=== PATIENT | female | born 1945 | race Caucasian/White ===

== ENCOUNTER 2016-07-13 06:06 | Observation (INO) | payer OTHER ==
[2016-07-13 06:07] VITALS: BMI 23.6
[2016-07-13] MEDS ORDERED: Sodium Chloride 0.9% 500 ML IV ONE (07:28)
--- NOTE | 2016-07-13 07:29 | C.PDOC ---
History Of Present Illness 71-year-old female, PMHx includes Hypertension, Hypercholesterolemia and Osteoporosis, presents to the emergency department with complaints of intermittent chest pain that is associated with nausea and vertigo-like sensation, since yesterday. Secondary complaint is right shoulder pain; Patient reports that pain has been mild for several months, but became more severe yesterday. Pain is worse with movement and palpation. Denies back pain, shortness of breath, headaches, or any other associated symptoms. No other complaints at this time. Time Seen by Provider: 07/13/16 06:10 Chief Complaint (Nursing): Upper Extremity Problem/Injury History Per: Patient History/Exam Limitations: no limitations Onset/Duration Of Symptoms: Days Current Symptoms Are (Timing): Still Present Past Medical History Reviewed: Historical Data, Nursing Documentation, Vital Signs Vital Signs: Last Vital Signs Temp 98.3 F 07/13/16 06:21 Pulse 69 07/13/16 06:21 Resp 16 07/13/16 06:21 BP 169/83 H 07/13/16 06:21 Pulse Ox 97 07/13/16 08:39 - Medical History PMH: HTN, Hypercholesterolemia, Osteoporosis Denies: Chronic Kidney Disease Family History: States: Unknown Family Hx - Social History Hx Tobacco Use: No Hx Alcohol Use: No Hx Substance Use: No - Immunization History Hx Tetanus Toxoid Vaccination: No Hx Influenza Vaccination: No Hx Pneumococcal Vaccination: No Review Of Systems Except As Marked, All Systems Reviewed And Found Negative. Constitutional: Negative for: Fever, Chills Cardiovascular: Positive for: Chest Pain Respiratory: Negative for: Cough, Shortness of Breath Gastrointestinal: Negative for: Nausea, Vomiting Musculoskeletal: Positive for: Shoulder Pain (right) Neurological: Positive for: Dizziness. Negative for: Weakness, Numbness, Headache Physical Exam - Physical Exam Appears: Non-toxic, No Acute Distress Skin: Warm, Dry, No Rash Head: Atraumatic, Normacephalic Eye(s): bilateral: Normal Inspection, PERRL Nose: Normal Oral Mucosa: Moist Lips: Normal Appearing Neck: Normal ROM Cardiovascular: Rhythm Regular Respiratory: Normal Breath Sounds, No Accessory Muscle Use Extremity: Normal ROM, Tenderness, No Pedal Edema, Capillary Refill (<2 seconds) , No Deformity, No Swelling, Other (FROM RIGHT SHOULDER, NO SWELLING. (+)TTP.) Neurological/Psych: Oriented x3, Normal Speech ED Course And Treatment - Laboratory Results Result Diagrams: 07/13/16 07:34 07/13/16 07:34 Lab Interpretation: No Acute Changes ECG: Interpreted By Me ECG Rhythm: Sinus Rhythm, Nonspecific Changes (non specific T wave abnormality) ECG Interpretation: No Acute Changes Rate From EC O2 Sat by Pulse Oximetry: 97 Pulse Ox Interpretation: Normal - Radiology CXR: Interpreted by Me CXR Interpretation: Yes: No Acute Disease - Other Rad right shoulder X-Ray: Interpreted by Me Interpretation: no acute fx or dislocation Progress Note: Plan: EKG. BNP, CMP, Trop I. Chest X-Ray. Meclizine, Aspirin , IVF. XR: R Shoulder. Reassess and Disposition - Physician Consult Information Time Consulting Physician Contacted: 08:39 Physician Contacted: Suresh Nelson (accepted the pt) Disposition Counseled Patient/Family Regarding: Studies Performed, Diagnosis - Disposition Disposition: HOSPITALIZED Disposition Time: 08:37 Condition: STABLE - Clinical Impression Clinical Impression: Chest pain, Vertigo, Shoulder pain, right - Scribe Statement The provider has reviewed the documentation as recorded by the Jeff Roland All medical record entries made by the Brendanibsamaria were at my direction and personally dictated by me. I have reviewed the chart and agree that the record accurately reflects my personal performance of the history, physical exam, medical decision making, and the department course for this patient. I have also personally directed, reviewed, and agree with the discharge instructions and disposition. Decision To Admit - Pt Status Changed To: Hospital Disposition Of: Observation - . Bed Request Type: Telemetry Admitting Physician: Suresh Nelson Patient Diagnosis: Chest pain, Vertigo, Shoulder pain, right
[2016-07-13 07:37] LABS: BASO # 0.1 K/uL (0.0-0.2); BASO % 1.3 % (0.0-2.0); EOS # 0.1 K/uL (0.0-0.7); EOS % 1.4 % (0.0-4.0); HEMATOCRIT 40.2 % (34.0-47.0); MEAN CELL VOLUME 88.6 fL (81.0-99.0); MEAN CORPUSCULAR HEMOGLOBIN 29.2 pg (27.0-31.0); MEAN CORPUSCULAR HGB CONC 32.9 g/dL (33.0-37.0); MEAN PLATELET VOLUME 7.7 fL (7.2-11.7); MONO # 0.4 K/uL (0.0-0.8); MONO % 7.9 % (0.0-10.0); RED CELL DISTRIBUTION WIDTH 13.4 % (11.5-14.5); WHITE BLOOD COUNT 5.3 K/uL (4.8-10.8)
[2016-07-13] MEDS ORDERED: Sodium Chloride 0.9% 1,000 ML ONE (07:45)
[2016-07-13 07:46] LABS: CHLORIDE 101 mmol/L (98-107); SODIUM 140 mmol/L (132-148)
[2016-07-13 07:47] LABS: POTASSIUM 4.4 mmol/L (3.6-5.2)
[2016-07-13 07:49] LABS: ALB/GLOB RATIO 1.3 (1.0-2.1); ALKALINE PHOSPHATASE 94 U/L (38-126); ALT/SGPT 25 U/L (9-52); AST/SGOT 35 U/L (14-36); BILIRUBIN,TOTAL 0.7 mg/dL (0.2-1.3); BLOOD UREA NITROGEN 15 mg/dL (7-17); CARBON DIOXIDE 26 mmol/L (22-30); GFR AFRICAN-AMERICAN > 60; GLUCOSE,RANDOM 87 mg/dL (65-105); TOTAL PROTEIN 7.6 g/dL (6.3-8.3)
[2016-07-13 07:50] LABS: CALCIUM 8.5 mg/dl (8.6-10.4)
--- NOTE | 2016-07-13 10:05 | CP.PCM.HP ---
<Doris Gibson - Last Filed: 07/13/16 11:17> History of Present Illness - History of Present Illness History of Present Illness: CC: "chest pain and shoulder pain" HPI: Patient is a 71 year old female with PMHx of HTN, hyperlipidemia, osteoporosis and seasonal allergies presenting for left sided constant chest pain and right shoulde pain since yesterday. Patient denies trauma, fall, lifting anything heavy. Patient reports mild acid reflux. Patient reports associated SOB with left sided chest pain. Patient said it came on out of the blue while sitting. Patient was able to sleep but as soon as she woke up she felt it again. Patient says it hurts more when she pushes on it and moves around. Pain increases with deep inspiration. Patient says the pain and SOB have resolved now with the ASA she received in the ED. Patient reports intermittent cough x 2 days nonproductive of phlegm. Patient also reports dizziness since yesterday on and off. Patient says that is gone but she feels a little nauseous now. Patient did not fall or lose her balance. Patient's right shoulder pain also started yesterday. She does not remember doing anything to hurt her shoulder. She has not used ice. Pain resolved with advil at home but returned a few hours later. 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 This may have aggravated her shoulder. Patient also reports urinating every 30 minutes for the past 2 days. Patient denies pain with urination. Patient denies fever, vision change, palpitations, vomiting, diarrhea, constipation, weight change. PMD: Dr. Fam Allergies: seasonal, NKDA PMHx: as above PSHx: denies Social Hx: Denies ETOH, Tobacco, drugs. Lives alone. Works as nanny for 2 boys Family Hx: denies HI, CA, HTN and DM in family Medications: A medication for allergies; patient reports stopping her HTN and hyperlipidemia meds because she says it got better. Patient does not know names of what she used to be on. Present on Admission - Present on Admission Any Indicators Present on Admission: No Review of Systems - Constitutional Constitutional: Chills. absent: Fever, Weakness - EENT Eyes: absent: Change in Vision Ears: Dizziness Nose/Mouth/Throat: absent: Sore Throat - Cardiovascular Cardiovascular: Chest Pain, Chest Pain at Rest, Dyspnea, Pain Radiating to Arm/ Neck/Jaw (to opposite shoulder - right shoulder). absent: Diaphoresis, Leg Edema, Palpitations, Pedal Edema, Syncope - Respiratory Respiratory: Cough, Dyspnea. absent: Wheezing, Chest Congestion, Pain with Coughing - Gastrointestinal Gastrointestinal: Nausea. absent: Abdominal Pain, Constipation, Diarrhea, Vomiting - Genitourinary Genitourinary: Urinary Frequency. absent: Dysuria - Reproductive: Female Reproductive:Female: Post Menopausal - Musculoskeletal Musculoskeletal: absent: Back Pain, Numbness - Integumentary Integumentary: absent: Rash - Neurological Neurological: Dizziness. absent: Headaches, Syncope - Endocrine Endocrine: absent: Palpitations - Hematologic/Lymphatic Hematologic: absent: Easy Bleeding, Easy Bruising Past Patient History - Past Medical History & Family History Past Medical History?: Yes Past Family History: Reviewed and not pertinent - Past Social History Smoking Status: Never Smoked Occupation: nanny for 2 boys Alcohol: None Drugs: Denies Home Situation {Lives}: Alone - CARDIAC Hx Hypercholesterolemia: Yes Hx Hypertension: Yes - PULMONARY Hx Respiratory Disorders: No - NEUROLOGICAL Hx Neurological Disorder: No - HEENT Hx HEENT Problems: No - RENAL Hx Chronic Kidney Disease: No - ENDOCRINE/METABOLIC Hx Endocrine Disorders: No - HEMATOLOGICAL/ONCOLOGICAL Hx Blood Disorders: No - MUSCULOSKELETAL/RHEUMATOLOGICAL Hx Osteoporosis: Yes - GASTROINTESTINAL Hx Gastrointestinal Disorders: No - PSYCHIATRIC Hx Substance Use: No - SURGICAL HISTORY Hx Surgeries: No - ANESTHESIA Hx Anesthesia: No Meds Home Medications: Home Medication List Medication Instructions Recorded Confirmed Type Aspirin [Aspirin Chewable] 81 mg PO DAILY #30 07/14/16 Rx Ciprofloxacin HCl [Cipro] 500 mg PO BID #14 tablet 07/14/16 Rx Meclizine [Meclizine*] 25 mg PO TID PRN 30 Days 07/14/16 Rx Simvastatin 20 mg PO HS #30 tablet 07/14/16 Rx amLODIPine [Norvasc] 5 mg PO DAILY #30 tab 07/14/16 Rx Allergies/Adverse Reactions: Allergies Allergy/AdvReac Type Severity Reaction Status Date / Time No Known Allergies Allergy Verified 07/13/16 06:30 Physical Exam - Constitutional Appears: Non-toxic, No Acute Distress - Head Exam Head Exam: ATRAUMATIC, NORMAL INSPECTION - Eye Exam Eye Exam: EOMI - ENT Exam ENT Exam: Mucous Membranes Moist - Respiratory Exam Respiratory Exam: Chest Wall Tenderness, Clear to Auscultation Bilateral, NORMAL BREATHING PATTERN. absent: Rales, Rhonchi, Wheezes - Cardiovascular Exam Cardiovascular Exam: REGULAR RHYTHM, +S1, +S2. absent: Gallop, Rubs, Systolic Murmur - GI/Abdominal Exam GI & Abdominal Exam: Normal Bowel Sounds, Soft. absent: Distended, Tenderness - Extremities Exam Additional comments: right shoulder tenderness posterior and anterior cannot lift arm over head due to pain - Neurological Exam Neurological exam: Alert, Oriented x3 - Psychiatric Exam Psychiatric exam: Normal Affect, Normal Mood - Skin Skin Exam: Normal Color, Warm Results - Vital Signs Recent Vital Signs: Last Vital Signs Temp 98.3 F 07/13/16 06:21 Pulse 69 07/13/16 06:21 Resp 16 07/13/16 06:21 BP 169/83 H 07/13/16 06:21 Pulse Ox 97 07/13/16 09:51 - Labs Result Diagrams: 07/13/16 07:34 07/13/16 07:34 Labs: Laboratory Results - last 24 hr 07/13/16 07/13/16 07:34 07:34 WBC 5.3 RBC 4.54 Hgb 13.2 Hct 40.2 MCV 88.6 MCH 29.2 MCHC 32.9 L RDW 13.4 Plt Count 256 MPV 7.7 Neut % (Auto) 52.4 Lymph % (Auto) 37.0 Kendall % (Auto) 7.9 Eos % (Auto) 1.4 Baso % (Auto) 1.3 Neut # 2.8 Lymph # 2.0 Kendall # 0.4 Eos # 0.1 Baso # 0.1 Sodium 140 Potassium 4.4 Chloride 101 Carbon Dioxide 26 Anion Gap 17 BUN 15 Creatinine 0.5 L Est GFR ( Amer) > 60 Est GFR (Non-Af Amer) > 60 Random Glucose 87 Calcium 8.5 L Total Bilirubin 0.7 AST 35 ALT 25 Alkaline Phosphatase 94 Troponin I < 0.0120 NT-Pro-B Natriuret Pep 68.4 Total Protein 7.6 Albumin 4.2 Globulin 3.3 Albumin/Globulin Ratio 1.3 Assessment & Plan - Assessment and Plan (Free Text) Assessment: ACS DILIA neg x1 F/U ROMIs x2 with EKGs at 14:00 and 20:00 F/U ECHO ASA 81mg PO daily Crestor 10mg PO daily F/U HgbA1C, TSH, Lipid panel Shoulder pain Likely muscular R. Shoulder X ray: likely DJD - f/u official report Ibuprofen 400mg PO Q6 PRN Will consider MRI if pain persists Urinary frequency F/U UA and urine C&S Rocephin 1gm IVPB daily started 07/13/16 WBC normal, afebrile Monitor Dizziness Resolved with meclizine in ER Meclixine 25mg PO TID F/U ECHO F/U carotid US F/U RPR, Vit D, TSH, B12, Folate NS @60cc/hr History of HTN No home meds Uncontrolled on admission Started Norvasc 5mg PO daily Monitor BPs History of hyperlipidemia No home med Crestor 10mg PO HS F/U FLP Prophylaxis Protonix 40mg PO daily Hep 5000U SC Q8 SCDs <Suresh Nelson - Last Filed: 08/20/16 16:41> Results - Vital Signs Recent Vital Signs: Last Vital Signs Temp 97.6 F 07/14/16 15:30 Pulse 62 07/14/16 16:49 Resp 20 07/14/16 15:30 BP 147/91 H 07/14/16 15:30 Pulse Ox 97 07/14/16 15:30 - Labs Result Diagrams: 07/14/16 08:04 07/13/16 07:34 Attending/Attestation - Attestation I have personally seen and examined this patient.: Yes I have fully participated in the care of the patient.: Yes I have reviewed all pertinent clinical information: Yes Notes (Text): Patient Seen and examined with the resident. Agree with the resident's evaluation, assessment and plan. Chest pain need to consider ACS Shoulder pain Urinary frequency Dizziness Resolved with meclizine in ER
[2016-07-13] MEDS: Pantoprazole 40 mg EC Tab PO SCH (11:00)
[2016-07-13] MEDS: Sodium Chloride 0.9% 1,000 ML IV SCH (11:45)
--- NOTE | 2016-07-13 11:47 | RAD ---
PROCEDURE: Radiographs of the Right Shoulder HISTORY: Arm pain. No antecedent history of trauma provided. COMPARISON: AllNo prior. FINDINGS: BONES: No acute fracture. No evidence of subluxation or dislocation. JOINTS: Degenerative changes affecting the acromioclavicular joint, mild. Preservation of the glenohumeral relationship. SOFT TISSUES: Normal. OTHER FINDINGS: None. IMPRESSION: No acute findings related to/accounting for the clinical presentation. Concordant results with the preliminary interpretation rendered by the emergency department physician procedure.
--- NOTE | 2016-07-13 11:48 | RAD ---
PROCEDURE: CHEST RADIOGRAPH, 1 VIEW HISTORY: chest pain COMPARISON: 12/07/2015. FINDINGS: LUNGS: Clear. PLEURA: No pneumothorax or pleural fluid seen. CARDIOVASCULAR: Normal. OSSEOUS STRUCTURES: No significant abnormalities. VISUALIZED UPPER ABDOMEN: Normal. OTHER FINDINGS: None. IMPRESSION: No active disease. No acute/significant interval changes. Concordant results with the preliminary interpretation rendered by the emergency department physician procedure.
[2016-07-13 16:05] VITALS: RESP 20
[2016-07-14] MEDS: Sodium Chloride 0.9% 1,000 ML IV SCH (05:25)
[2016-07-14 08:14] LABS: BASO # 0.1 K/uL (0.0-0.2); BASO % 1.1 % (0.0-2.0); EOS # 0.1 K/uL (0.0-0.7); EOS % 2.2 % (0.0-4.0); HEMATOCRIT 39.4 % (34.0-47.0); LYMPH # 2.3 K/uL (1.0-4.3); LYMPH % 47.1 % (20.0-40.0); MEAN CELL VOLUME 89.3 fL (81.0-99.0); MEAN CORPUSCULAR HGB CONC 33.6 g/dL (33.0-37.0); MONO # 0.4 K/uL (0.0-0.8); MONO % 8.1 % (0.0-10.0); RED CELL DISTRIBUTION WIDTH 13.8 % (11.5-14.5)
[2016-07-14 08:21] LABS: RBC URINE 9 /hpf (0-3); URINE BACTERIA RARE (<OCC); URINE BILIRUBIN NEGATIVE (NEGATIVE); URINE BLOOD 1+ (NEGATIVE); URINE COLOR Yellow (YELLOW); URINE GLUCOSE (UA) NORMAL (Normal); URINE KETONE NEGATIVE (NEGATIVE); URINE LEUKOCYTE ESTERASE 3+ Leu/uL (Negative); URINE PROTEIN NEGATIVE (NEGATIVE); URINE UROBILINOGEN NORMAL mg/dL (0.2-1.0); WBC URINE 51 /hpf (0-5)
[2016-07-14 09:13] LABS: THYROID STIMULATING HORMONE 2.58 mIU/L (0.46-4.68)
[2016-07-14] MEDS ORDERED: Pneumococcal 23-Valent Vaccine IM ONE ×2 (10:00→13:45)
[2016-07-14] MEDS: Pantoprazole 40 mg EC Tab PO SCH (11:02)
--- NOTE | 2016-07-14 11:53 | CARD ---
APPROVED REPORT EXAM: Two-dimensional and M-mode echocardiogram with Doppler and color Doppler. Other Information Quality : GoodRhythm : INDICATION Dizziness and Vertigo Dyspnea Chest Pain RISK FACTORS Hypertension Hyperlipidemia M-Mode DIMENSIONS RVDd1.80 (2.1-3.2cm)Left Atrium (MM)3.44 (2.5-4.0cm) IVSd1.15 (0.7-1.1cm)Aortic Root2.88 (2.2-3.7cm) LVDd4.72 (4.0-5.6cm)Aortic Cusp Exc.1.80 (1.5-2.0cm) PWd1.10 (0.7-1.1cm)FS (%) 51 % LVDs2.29 (2.0-3.8cm)LVEF (%)83 (>50%) Mitral Valve MV E Pnwxgpne57.9cm/sMV A Hdsoyblk472.5cm/sE/A ratio0.7 TDI E/Lateral E'0.0E/Medial E'0.0 Tricuspid Valve TR Peak [id number]/sTR Peak Gr.[id number] LEFT VENTRICLE The left ventricle is normal size. There is normal left ventricular wall thickness. The left ventricular systolic function is normal. The left ventricular ejection fraction is within the normal range. There is normal LV segmental wall motion. Transmitral Doppler flow pattern is Grade I-abnormal relaxation pattern. Normal left atrial pressure. RIGHT VENTRICLE The right ventricle is normal size. The right ventricular systolic function is normal. ATRIA The left atrium size is normal. The right atrium size is normal. AORTIC VALVE The aortic valve is normal in structure. No aortic regurgitation is present. MITRAL VALVE The mitral valve is normal in structure. There is no mitral valve regurgitation noted. TRICUSPID VALVE The tricuspid valve is normal in structure. There is trace to mild tricuspid regurgitation. PULMONIC VALVE The pulmonary valve is normal in structure. There is trace pulmonic valvular regurgitation. GREAT VESSELS The aortic root is normal in size. The IVC is normal in size and collapses >50% with inspiration. PERICARDIAL EFFUSION There is no pericardial effusion. <Conclusion> The left ventricular systolic function is normal. The right ventricular systolic function is normal. No significant valvular abnormality noted. There is no pericardial effusion.
[2016-07-14 16:26] VITALS: BP 147/91; TEMP 97.6; O2SAT 97
[2016-07-14 16:56] VITALS: PULSE 62
--- NOTE | 2016-07-14 17:17 | CARD ---
APPROVED REPORT EKG Measurement Heart [id number] QT0T0 QTc0 <Conclusion> No QRS complexes found, no ECG analysis possible
--- NOTE | 2016-07-14 17:18 | CARD ---
APPROVED REPORT EKG Measurement Heart [id number] <Conclusion> Normal sinus rhythm Nonspecific T wave abnormality Abnormal ECG
--- NOTE | 2016-07-14 17:19 | CARD ---
APPROVED REPORT EKG Measurement Heart [id number] NM [id number] <Conclusion> Normal sinus rhythm Nonspecific T wave abnormality Abnormal ECG
--- NOTE | 2016-07-14 17:43 | CP.PCM.DIS ---
<Wilmer Lema - Last Filed: 07/14/16 17:54> Provider - Provider Date of Admission: 07/13/16 09:50 Attending physician: Suresh Nelson MD Consults: No consults. Time Spent in preparation of Discharge (in minutes): 45 Hospital Course - Lab Results Lab Results: Most Recent Lab Values WBC 5.0 K/uL (4.8-10.8) 07/14/16 08:04 RBC 4.41 Mil/uL (3.80-5.20) 07/14/16 08:04 Hgb 13.2 g/dL (11.0-16.0) 07/14/16 08:04 Hct 39.4 % (34.0-47.0) 07/14/16 08:04 MCV 89.3 fL (81.0-99.0) 07/14/16 08:04 MCH 30.0 pg (27.0-31.0) 07/14/16 08:04 MCHC 33.6 g/dL (33.0-37.0) 07/14/16 08:04 RDW 13.8 % (11.5-14.5) 07/14/16 08:04 Plt Count 262 K/uL (130-400) 07/14/16 08:04 MPV 8.0 fL (7.2-11.7) 07/14/16 08:04 Neut % (Auto) 41.5 % (50.0-75.0) L 07/14/16 08:04 Lymph % (Auto) 47.1 % (20.0-40.0) H 07/14/16 08:04 Becker % (Auto) 8.1 % (0.0-10.0) 07/14/16 08:04 Eos % (Auto) 2.2 % (0.0-4.0) 07/14/16 08:04 Baso % (Auto) 1.1 % (0.0-2.0) 07/14/16 08:04 Neut # 2.1 K/uL (1.8-7.0) 07/14/16 08:04 Lymph # 2.3 K/uL (1.0-4.3) 07/14/16 08:04 Becker # 0.4 K/uL (0.0-0.8) 07/14/16 08:04 Eos # 0.1 K/uL (0.0-0.7) 07/14/16 08:04 Baso # 0.1 K/uL (0.0-0.2) 07/14/16 08:04 APTT 47 SECONDS (21-34) H 07/14/16 08:04 Sodium 140 mmol/L (132-148) 07/13/16 07:34 Potassium 4.4 mmol/L (3.6-5.2) 07/13/16 07:34 Chloride 101 mmol/L (98-107) 07/13/16 07:34 Carbon Dioxide 26 mmol/L (22-30) 07/13/16 07:34 Anion Gap 17 (10-20) 07/13/16 07:34 BUN 15 mg/dL (7-17) 07/13/16 07:34 Creatinine 0.5 MG/DL (0.7-1.2) L 07/13/16 07:34 Est GFR ( Amer) > 60 07/13/16 07:34 Est GFR (Non-Af Amer) > 60 07/13/16 07:34 Random Glucose 87 mg/dL (65-105) 07/13/16 07:34 Hemoglobin A1c 5.9 % (4.2-6.5) 07/14/16 08:04 Calcium 8.5 mg/dl (8.6-10.4) L 07/13/16 07:34 Total Bilirubin 0.7 mg/dL (0.2-1.3) 07/13/16 07:34 AST 35 U/L (14-36) 07/13/16 07:34 ALT 25 U/L (9-52) 07/13/16 07:34 Alkaline Phosphatase 94 U/L (38-126) 07/13/16 07:34 Total Creatine Kinase 58 U/L (30-135) 07/13/16 20:14 CK-MB (Mass) 0.57 ng/mL (0.0-3.38) 07/13/16 20:14 Troponin I < 0.0120 ng/mL (0.00-0.120) 07/13/16 07:34 Troponin I, Quant < 0.0120 ng/mL (0.00-0.120) 07/13/16 20:14 NT-Pro-B Natriuret Pep 68.4 pg/mL (0-900) 07/13/16 07:34 Total Protein 7.6 g/dL (6.3-8.3) 07/13/16 07:34 Albumin 4.2 g/dL (3.5-5.0) 07/13/16 07:34 Globulin 3.3 gm/dL (2.2-3.9) 07/13/16 07:34 Albumin/Globulin Ratio 1.3 (1.0-2.1) 07/13/16 07:34 Triglycerides 340 mg/dL (0-149) H D 07/14/16 08:04 Cholesterol 249 mg/dL (0-199) H 07/14/16 08:04 LDL Cholesterol Direct 146 mg/dL (0-129) H 07/14/16 08:04 HDL Cholesterol 39 mg/dL (30-70) 07/14/16 08:04 Vitamin B12 588 pg/mL (239-931) 07/14/16 08:04 25-OH Vitamin D Total < 12.8 NG/ML (30.0-100.0) L 07/14/16 08:04 TSH 3rd Generation 2.58 mIU/L (0.46-4.68) 07/14/16 08:04 Urine Color Yellow (YELLOW) 07/14/16 08:06 Urine Clarity Hazy (Clear) 07/14/16 08:06 Urine pH 5.0 (5.0-8.0) 07/14/16 08:06 Ur Specific [place] 1.016 (1.003-1.030) 07/14/16 08:06 Urine Protein Negative mg/dL (NEGATIVE) 07/14/16 08:06 Urine Glucose (UA) Normal mg/dL (Normal) 07/14/16 08:06 Urine Ketones Negative mg/dL (NEGATIVE) 07/14/16 08:06 Urine Blood 1+ (NEGATIVE) H 07/14/16 08:06 Urine Nitrate Negative (NEGATIVE) 07/14/16 08:06 Urine Bilirubin Negative (NEGATIVE) 07/14/16 08:06 Urine Urobilinogen Normal mg/dL (0.2-1.0) 07/14/16 08:06 Ur Leukocyte Esterase 3+ Melony/uL (Negative) H 07/14/16 08:06 Urine WBC (Auto) 51 /hpf (0-5) H 07/14/16 08:06 Urine RBC (Auto) 9 /hpf (0-3) H 07/14/16 08:06 Ur Squamous Epith Cells 9 /hpf (0-5) H 07/14/16 08:06 Urine Bacteria Rare (<OCC) 07/14/16 08:06 RPR Nonreactive (NONREACTIVE) 07/14/16 08:04 - Hospital Course Hospital Course: Attending physician: Dr. Huerta Consults: None Condition on discharge: stable Discharge dx: 1. R/o ACS 2. Dizziness 3. UTI 4. HTN 5. HLD Procedures: none Hospital course: This is a 71 yo female with past medical hx HTN, HLD, osteoporosis presenting with chest pain radiating to right shoulder, constant, increased with inspiration. CXR was negative. Should x ray was negative. EKG showed NSR @ 81 bpm. UA showed blood in urine as well as LE and numerous WBCs. Carotid doppler reading is pending. Echo performed was normal. Troponins were negative x 3. On day of discharge, pain had completely resolved and pt was given rx for additional days of abx to treat uti. She will need outpatient stress test. HPI: see H/P Lab results: see lab section Discharge meds: 1. vitamin d 50,000 units 1 x weekly for 12 wks 2. cipro 500 mg bid for 7 days 3. asa 81 daily 4. norvasc 5 daily 5. antivert 25 tid prn 6. simvastatin 20 po hs Discharge instructions -Return if condition worsens. Take all discharge meds as prescribed. F/u In [facility]. Pt will need outpatient stress test. - Date & Time of H&P Date of H&P: 07/13/16 Time of H&P: 09:59 Discharge Exam - Head Exam Head Exam: ATRAUMATIC, NORMAL INSPECTION - Eye Exam Eye Exam: EOMI - ENT Exam ENT Exam: Mucous Membranes Moist - Neck Exam Neck exam: Full Rom, Normal Inspection - Respiratory Exam Respiratory Exam: NORMAL BREATHING PATTERN - Cardiovascular Exam Cardiovascular Exam: +S1, +S2 - GI/Abdominal Exam GI & Abdominal Exam: Normal Bowel Sounds, Unremarkable - Extremities Exam Extremities exam: full ROM, normal inspection - Back Exam Back exam: NORMAL INSPECTION - Neurological Exam Neurological exam: Alert, Oriented x3 - Psychiatric Exam Psychiatric exam: Normal Affect, Normal Mood - Skin Skin Exam: Dry, Intact, Normal Color, Warm Discharge Plan - Discharge Medications Prescriptions: amLODIPine [Norvasc] 5 mg PO DAILY #30 tab Aspirin [Aspirin Chewable] 81 mg PO DAILY #30 Ciprofloxacin HCl [Cipro] 500 mg PO BID #14 tablet Meclizine [Meclizine*] 25 mg PO TID PRN 30 Days PRN Reason: Dizziness Simvastatin 20 mg PO HS #30 tablet - Follow Up Plan Condition: STABLE Disposition: HOME/ ROUTINE Instructions: Ciprofloxacin (By mouth), Aspirin (By mouth), Meclizine (By mouth ), Amlodipine (By mouth), Simvastatin (By mouth), Chest Pain (DC), Heart Healthy Diet (DC), Hypertension (DC), Hyperlipidemia (DC) Additional Instructions: pt is medically stable for discharge. pt to follow up in [facility] ([phone]) within 1 week of discharge. Referrals: [facility] [Outside] <Raeann Huerta V - Last Filed: 07/14/16 23:59> Provider - Provider Date of Admission: 07/13/16 09:50 Attending physician: Suresh Nelson MD Hospital Course - Lab Results Lab Results: Most Recent Lab Values WBC 5.0 K/uL (4.8-10.8) 07/14/16 08:04 RBC 4.41 Mil/uL (3.80-5.20) 07/14/16 08:04 Hgb 13.2 g/dL (11.0-16.0) 07/14/16 08:04 Hct 39.4 % (34.0-47.0) 07/14/16 08:04 MCV 89.3 fL (81.0-99.0) 07/14/16 08:04 MCH 30.0 pg (27.0-31.0) 07/14/16 08:04 MCHC 33.6 g/dL (33.0-37.0) 07/14/16 08:04 RDW 13.8 % (11.5-14.5) 07/14/16 08:04 Plt Count 262 K/uL (130-400) 07/14/16 08:04 MPV 8.0 fL (7.2-11.7) 07/14/16 08:04 Neut % (Auto) 41.5 % (50.0-75.0) L 07/14/16 08:04 Lymph % (Auto) 47.1 % (20.0-40.0) H 07/14/16 08:04 Becker % (Auto) 8.1 % (0.0-10.0) 07/14/16 08:04 Eos % (Auto) 2.2 % (0.0-4.0) 07/14/16 08:04 Baso % (Auto) 1.1 % (0.0-2.0) 07/14/16 08:04 Neut # 2.1 K/uL (1.8-7.0) 07/14/16 08:04 Lymph # 2.3 K/uL (1.0-4.3) 07/14/16 08:04 Becker # 0.4 K/uL (0.0-0.8) 07/14/16 08:04 Eos # 0.1 K/uL (0.0-0.7) 07/14/16 08:04 Baso # 0.1 K/uL (0.0-0.2) 07/14/16 08:04 APTT 47 SECONDS (21-34) H 07/14/16 08:04 Sodium 140 mmol/L (132-148) 07/13/16 07:34 Potassium 4.4 mmol/L (3.6-5.2) 07/13/16 07:34 Chloride 101 mmol/L (98-107) 07/13/16 07:34 Carbon Dioxide 26 mmol/L (22-30) 07/13/16 07:34 Anion Gap 17 (10-20) 07/13/16 07:34 BUN 15 mg/dL (7-17) 07/13/16 07:34 Creatinine 0.5 MG/DL (0.7-1.2) L 07/13/16 07:34 Est GFR ( Amer) > 60 07/13/16 07:34 Est GFR (Non-Af Amer) > 60 07/13/16 07:34 Random Glucose 87 mg/dL (65-105) 07/13/16 07:34 Hemoglobin A1c 5.9 % (4.2-6.5) 07/14/16 08:04 Calcium 8.5 mg/dl (8.6-10.4) L 07/13/16 07:34 Total Bilirubin 0.7 mg/dL (0.2-1.3) 07/13/16 07:34 AST 35 U/L (14-36) 07/13/16 07:34 ALT 25 U/L (9-52) 07/13/16 07:34 Alkaline Phosphatase 94 U/L (38-126) 07/13/16 07:34 Total Creatine Kinase 58 U/L (30-135) 07/13/16 20:14 CK-MB (Mass) 0.57 ng/mL (0.0-3.38) 07/13/16 20:14 Troponin I < 0.0120 ng/mL (0.00-0.120) 07/13/16 07:34 Troponin I, Quant < 0.0120 ng/mL (0.00-0.120) 07/13/16 20:14 NT-Pro-B Natriuret Pep 68.4 pg/mL (0-900) 07/13/16 07:34 Total Protein 7.6 g/dL (6.3-8.3) 07/13/16 07:34 Albumin 4.2 g/dL (3.5-5.0) 07/13/16 07:34 Globulin 3.3 gm/dL (2.2-3.9) 07/13/16 07:34 Albumin/Globulin Ratio 1.3 (1.0-2.1) 07/13/16 07:34 Triglycerides 340 mg/dL (0-149) H D 07/14/16 08:04 Cholesterol 249 mg/dL (0-199) H 07/14/16 08:04 LDL Cholesterol Direct 146 mg/dL (0-129) H 07/14/16 08:04 HDL Cholesterol 39 mg/dL (30-70) 07/14/16 08:04 Vitamin B12 588 pg/mL (239-931) 07/14/16 08:04 25-OH Vitamin D Total < 12.8 NG/ML (30.0-100.0) L 07/14/16 08:04 TSH 3rd Generation 2.58 mIU/L (0.46-4.68) 07/14/16 08:04 Urine Color Yellow (YELLOW) 07/14/16 08:06 Urine Clarity Hazy (Clear) 07/14/16 08:06 Urine pH 5.0 (5.0-8.0) 07/14/16 08:06 Ur Specific [place] 1.016 (1.003-1.030) 07/14/16 08:06 Urine Protein Negative mg/dL (NEGATIVE) 07/14/16 08:06 Urine Glucose (UA) Normal mg/dL (Normal) 07/14/16 08:06 Urine Ketones Negative mg/dL (NEGATIVE) 07/14/16 08:06 Urine Blood 1+ (NEGATIVE) H 07/14/16 08:06 Urine Nitrate Negative (NEGATIVE) 07/14/16 08:06 Urine Bilirubin Negative (NEGATIVE) 07/14/16 08:06 Urine Urobilinogen Normal mg/dL (0.2-1.0) 07/14/16 08:06 Ur Leukocyte Esterase 3+ Melony/uL (Negative) H 07/14/16 08:06 Urine WBC (Auto) 51 /hpf (0-5) H 07/14/16 08:06 Urine RBC (Auto) 9 /hpf (0-3) H 07/14/16 08:06 Ur Squamous Epith Cells 9 /hpf (0-5) H 07/14/16 08:06 Urine Bacteria Rare (<OCC) 07/14/16 08:06 RPR Nonreactive (NONREACTIVE) 07/14/16 08:04 Attending/Attestation - Attestation I have personally seen and examined this patient.: Yes I have fully participated in the care of the patient.: Yes I have reviewed all pertinent clinical information, including history, physical exam and plan: Yes Notes (Text): Patient seen, examined, and case discussed with day-time resident. Patient seen on morning rounds approximately 10:15AM this morning. Patient denies acute complaints. Chest pain resolved, denies dyspnea on exertion , denies palpitations, denies neck pain, denies abdominal pain, denies nausea, denies vomitting, reports dysuria for about 15 days but has not taken any antibiotics during this time period, denies hematuria, denies vaginal pruitus, denies headache. Patient reports right shoulder pain has improved. Discussed with patient regarding shoulder xray, noted arthritic changes but no acute findings. Patient's echocardiogram is normal. DILIA X3 negative. No acute changes in EKG and compared to prior EKG which noted no acute changes. Discussed discharge order and discharge instructions with day-time resident. New prescriptions: 1. vitamin d 50,000 units 1 x weekly for 12 wks for vitamin D deficiency 2. cipro 500 mg bid for 7 days for dysuria 3. asa 81 PO daily for cardioprotection 4. norvasc 5 PO daily for high blood pressure 5. antivert 25 tid prn for dizziness, none reported today 6. simvastatin 20 po hs (changed from crestor due to high cost of crestor and patient unlikely to afford upon discharge. Patient to follow-up in the [facility] ([phone]), and will need cardiology referral for outpatient stress test given she has a history of hypertension, hyperlipidemia, and above age 49. This is a summary of patient's hospitalization. Please see EMR for further details.
--- NOTE | 2016-07-14 20:57 | VASCLAB ---
PROCEDURE: HISTORY: Dizziness COMPARISON: None available. TECHNIQUE: Grayscale and duplex Doppler evaluation of the cervical carotid and vertebral arteries were performed. The common carotid, carotid bifurcations and cervical Internal Carotid Artery (ICA) and proximal External Carotid Artery (ECA) were evaluated. The vertebral arteries were evaluated for gross patency and flow direction. Report prepared by Ajay Frias, BS, RVT FINDINGS: RIGHT CAROTID ARTERIES: 1. Common Carotid Artery: No significant focal plaque formation of the right common carotid artery. Maximum Peak Systolic velocity: 77 cm/sec: End-diastolic velocity 17 cm/sec. 2. Carotid Bifurcation: Calcific plaque formation. Maximum Peak Systolic velocity: 72 cm/sec: End-diastolic velocity 16 cm/sec. 3. Internal Carotid Artery: Minimal plaque formation of the right proximal ICA which does not result in hemodynamically significant stenosis. Plaque description: Calcific 3.1. Proximal Segment: Peak systolic velocity 97 cm/sec: End-diastolic velocity 18 cm/sec - % stenosis 0-15% 3.2. Middle Segment: Peak systolic velocity 70 cm/sec: End-diastolic velocity 20 cm/sec - % stenosis 0-15% 3.3. Distal Segment: Peak systolic velocity 90 cm/sec: End-diastolic velocity 25 cm/sec - % stenosis 0-15% 4. External Carotid Artery: Calcific plaque formation. Peak systolic velocity 134 cm/sec 5. ICA/CCA Ratio: 1.3 LEFT CAROTID ARTERIES: 1. Common Carotid Artery: No significant focal plaque formation of the left common carotid artery. Maximum Peak Systolic velocity: 66 cm/sec: End-diastolic velocity 14 cm/sec. 2. Carotid Bifurcation: Calcific plaque formation. Maximum Peak Systolic velocity: 74 cm/sec: End-diastolic velocity 17 cm/sec. 3. Internal Carotid Artery: Mild heterogeneous plaque at the origin. 3.1. Proximal Segment: Peak systolic velocity 67 cm/sec: End-diastolic velocity 19 cm/sec - % stenosis 0-15% 3.2. Middle Segment: Peak systolic velocity 88 cm/sec: End-diastolic velocity 27 cm/sec - % stenosis 0-15% 3.3. Distal Segment: Peak systolic velocity 108 cm/sec: End-diastolic velocity 25 cm/sec - % stenosis 0-15% 4. External Carotid Artery: Mild calcific focal plaque formation. Peak systolic velocity 98 cm/sec 5. ICA/CCA Ratio: 1.6 VERTEBRAL ARTERIES: 1. Right Vertebral Artery: The right vertebral artery flow direction is antegrade. 2. Left Vertebral Artery: The left vertebral artery flow direction is antegrade. OTHER FINDINGS: 1. Right Brachial Blood pressure: 148 mmHg. 2. Left Brachial Blood pressure: 148 mmHg. 3. Heterogeneous thyroid gland. IMPRESSION: RIGHT: Duplex scan does not suggest hemodynamically significant stenosis of the right extracranial carotid arteries. LEFT: Duplex scan does not suggest hemodynamically significant stenosis of the left extracranial carotid arteries. Heterogeneous thyroid gland. Dedicated ultrasound recommended.
--- NOTE | 2016-08-26 08:06 | CARD ---
APPROVED REPORT EKG Measurement Heart [id number] <Conclusion> Normal sinus rhythm Nonspecific T wave abnormality Abnormal ECG
== END 2016-07-14 16:25 | disposition home or self-care (01) ==
LOC: C.ER 06:06 → C.9E 09:50 → C.5T 10:29 → C.6T 10:33
PROVIDERS: ADMIT Internal Medicine; ATTEND Internal Medicine
DX: R07.89 Other chest pain (principal); E55.9 Vitamin D deficiency, unspecified; E78.5 Hyperlipidemia, unspecified; I10 Essential (primary) hypertension; N39.0 Urinary tract infection, site not specified
CPT/HCPCS: 36415; 71010; 73030; 80053; 80061; 81001; 82306; 82607; 82747; 83036; 83880; 84443; 84484; 85025; 85730; 86592; 87086; 90471; 90732; 93005; 93306; 93880; 97162; 99285; G0378; G8978; G8979; J0696; J1644; J7040

== ENCOUNTER 2016-08-22 13:52 | Emergency (ER) | payer OTHER ==
[2016-08-22 13:52] VITALS: BMI 23.6
[2016-08-22 14:15] VITALS: BP 141/74; PULSE 71; RESP 18; TEMP 98.5; O2SAT 96
--- NOTE | 2016-08-22 15:27 | RAD ---
HISTORY: mid thoracic pain, no trauma COMPARISON: No prior. FINDINGS: BONES: There is normal alignment of the thoracic vertebral bodies. Thoracic kyphosis is maintained. There is no acute fracture or bone destruction. There is diffuse bone demineralization. . DISC SPACES: There is multilevel degenerative disc disease with anterior osteophytes and reduced disc heights, worse in the mid thoracic spine. SOFT TISSUES: The paravertebral soft tissues are normal. OTHER FINDINGS: None. IMPRESSION: No acute fracture or bone destruction. Mild multilevel degenerative disc disease, worse in the mid thoracic spine.
--- NOTE | 2016-08-22 15:43 | C.PDOC ---
History Of Present Illness 71 y/o female presents to ED with complaints of mid thoracic back pain for 15 days. Patient describes pain as dull and throbbing increasing with movement and constant with a 7/10 pain rate. Patient had an appointment at the clinic today but it was rescheduled. Patient denies numbness, weakness, n/v/d or any other complaints at this time. Time Seen by Provider: 08/22/16 14:21 Chief Complaint (Nursing): Back Pain History Per: Patient History/Exam Limitations: no limitations Onset/Duration Of Symptoms: Days Current Symptoms Are (Timing): Still Present Quality Of Discomfort: Dull Past Medical History Reviewed: Historical Data, Nursing Documentation, Vital Signs Vital Signs: Last Vital Signs Temp 98.5 F 08/22/16 14:10 Pulse 71 08/22/16 14:10 Resp 18 08/22/16 14:10 BP 141/74 08/22/16 14:10 Pulse Ox 96 08/22/16 15:48 - Medical History PMH: HTN, Hypercholesterolemia, Osteoporosis Family History: States: Unknown Family Hx - Social History Hx Tobacco Use: No Hx Alcohol Use: No Hx Substance Use: No - Immunization History Hx Tetanus Toxoid Vaccination: No Hx Influenza Vaccination: No Hx Pneumococcal Vaccination: No Review Of Systems Except As Marked, All Systems Reviewed And Found Negative. Constitutional: Negative for: Fever, Chills Gastrointestinal: Negative for: Nausea, Vomiting, Diarrhea Musculoskeletal: Positive for: Back Pain Skin: Negative for: Rash Neurological: Negative for: Weakness, Headache Physical Exam - Physical Exam Appears: Other (Visibly in Pain) Skin: Normal Color, Warm Head: Atraumatic, Normacephalic Oral Mucosa: Moist Cardiovascular: Rhythm Regular Respiratory: No Rales, No Rhonchi, No Wheezing Gastrointestinal/Abdominal: Soft, No Tenderness, No Guarding, No Rebound Back: Other (Tenderness to Mid Thoracic Area) Extremity: Normal ROM, Capillary Refill (<2 seconds) Neurological/Psych: Oriented x3, Normal Speech ED Course And Treatment O2 Sat by Pulse Oximetry: 96 (RA) Pulse Ox Interpretation: Normal Medical Decision Making Medical Decision Making: Patient will be given Medication and upon re-evaluation will be discharged home and referred for follow up Disposition Counseled Patient/Family Regarding: Studies Performed, Diagnosis, Need For Followup, Rx Given - Disposition Referrals: 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 MD/DO has examined the patient and agrees with the treatment plan. - Scribe Statement The provider has reviewed the documentation as recorded by the Brendanibsamaria Serrano All medical record entries made by the Jeff were at my direction and personally dictated by me. I have reviewed the chart and agree that the record accurately reflects my personal performance of the history, physical exam, medical decision making, and the department course for this patient. I have also personally directed, reviewed, and agree with the discharge instructions and disposition.
== END 2016-08-22 16:02 | disposition home or self-care (01) ==
LOC: C.ER 13:52
DX: S23.3XXA Sprain of ligaments of thoracic spine, initial encounter (principal); X58.XXXA Exposure to other specified factors, initial encounter

== ENCOUNTER 2017-07-01 10:54 | Emergency (ER) | payer OTHER ==
[2017-07-01 11:17] VITALS: BMI 24.5
[2017-07-01 11:21] VITALS: BP 146/76; PULSE 62; RESP 20; TEMP 97.8; O2SAT 98
[2017-07-01] MEDS ORDERED: Lidocaine 5% Patch TD STA (11:48)
[2017-07-01] MEDS ORDERED: Dexamethasone 4 mg/1 ml IM STA (11:48)
[2017-07-01] MEDS ORDERED: Lidocaine 5% Patch TD ONE (11:55)
[2017-07-01] MEDS ORDERED: Dexamethasone 4 mg/1 ml ONE (11:55)
[2017-07-01 12:08] LABS: SQUAMOUS EPITHIAL 6 /hpf (0-5); URINE BACTERIA RARE (<OCC); URINE BILIRUBIN NEGATIVE (NEGATIVE); URINE BLOOD NEGATIVE (NEGATIVE); URINE CLARITY Clear (Clear); URINE COLOR Yellow (YELLOW); URINE GLUCOSE (UA) NORMAL (Normal); URINE LEUKOCYTE ESTERASE 1+ Leu/uL (Negative); URINE PROTEIN NEGATIVE (NEGATIVE)
--- NOTE | 2017-07-01 12:09 | C.PDOC ---
History Of Present Illness 72yo female with history of diabetes, hypertension, high cholesterol, presents to ED with complaints of left sided back pain (contrary to triage), for the past 8 days. Patient states she has been taking Advil for the pain with no relief. She also reports a left lower abdominal pain, and states her back pain is worse with deep inspiration. She also reports feeling hot at night, and burning upon urination. She denies any weakness, numbness, tingling, bowel or bladder dysfunction. She has no other medical complaints. Time Seen by Provider: 07/01/17 11:24 Chief Complaint (Nursing): Back Pain History Per: Patient History/Exam Limitations: no limitations Onset/Duration Of Symptoms: Days (8) Current Symptoms Are (Timing): Still Present Quality Of Discomfort: "Pain" Previous Symptoms: Back Pain (back pain intermittently for monts) Associated Symptoms: denies: Incontinence, New Weakness, New Numbness Past Medical History Reviewed: Historical Data, Nursing Documentation, Vital Signs Vital Signs: Last Vital Signs Temp 97.8 F 07/01/17 11:17 Pulse 62 07/01/17 11:17 Resp 20 07/01/17 11:17 BP 146/76 07/01/17 11:17 Pulse Ox 98 07/01/17 22:40 - Medical History PMH: Diabetes, HTN, Hypercholesterolemia, Osteoporosis Denies: Chronic Kidney Disease Surgical History: No Surg Hx Family History: States: No Known Family Hx, Unknown Family Hx - Social History Hx Tobacco Use: No Hx Alcohol Use: No Hx Substance Use: No - Immunization History Hx Tetanus Toxoid Vaccination: No Hx Influenza Vaccination: No Hx Pneumococcal Vaccination: No Review Of Systems Except As Marked, All Systems Reviewed And Found Negative. Constitutional: Positive for: Fever Gastrointestinal: Positive for: Abdominal Pain. Negative for: Vomiting, Diarrhea Genitourinary: Positive for: Dysuria. Negative for: Frequency, Incontinence, Hematuria Musculoskeletal: Positive for: Back Pain Neurological: Negative for: Weakness, Numbness Physical Exam - Physical Exam Appears: Non-toxic, Other (appears to be in pain) Skin: Normal Color, Warm, Dry, No Rash Head: Atraumatic, Normacephalic Eye(s): bilateral: Normal Inspection, PERRL, EOMI Oral Mucosa: Moist Throat: No Erythema, No Exudate Neck: Normal ROM, Supple Chest: Symmetrical Cardiovascular: Rhythm Regular Respiratory: Normal Breath Sounds, No Stridor, No Wheezing Gastrointestinal/Abdominal: Normal Exam, Soft, No Tenderness Back: No CVA Tenderness, No Vertebral Tenderness, Paraspinal Tenderness (left para-thoracic tenderness) Extremity: Normal ROM, No Pedal Edema, No Deformity, No Swelling Neurological/Psych: Oriented x3, Normal Motor, Normal Sensation Gait: Steady ED Course And Treatment O2 Sat by Pulse Oximetry: 98 (RA) Pulse Ox Interpretation: Normal Medical Decision Making Medical Decision Making: Impression: Musculosksletal pain Prior records: Patient was seen in this facility on 08/22/16 with similar complaints, given Tramadol, Motrin and discharged home with instructions for follow up. Plan: -- Urinalysis -- Lidoderm patch -- Toradol 30 mg IM -- Decadron 4 mg IM time: 1300 UA reviewed with no signs of infection noted. On re-exam, the patient reports improvement of symptoms. Lungs are CTA, heart is RRR, abdomen is soft, non-tender and tolerating PO well. Ambulatory in the ED with steady gait. Follow up with the medical doctor within 1-2 days. Return if worsened Disposition - Disposition Referrals: [facility] [Outside] Disposition: HOME/ ROUTINE Disposition Time: 12:57 Condition: GOOD Additional Instructions: Follow with the medical doctor/clinic within 1-2 days. Return if worsened, Prescriptions: Cyclobenzaprine [Flexeril] 5 mg PO TID #21 tab Lidocaine 5% [Lidoderm] 1 each TP DAILY #10 patch Naproxen 375 mg PO BID #10 tablet Instructions: Low Back Pain in Adults Forms: [facility] (Namibian) Print Language: BANGLADESHI - Clinical Impression Clinical Impression: Low back pain - PA / INSPECTOR BICYCLE / Resident Statement MD/DO has reviewed & agrees with the documentation as recorded. - Scribe Statement The provider has reviewed the documentation as recorded by the Scribe (Lorenza Rivers) Provider Attestation: All medical record entries made by the Brendanibsamaria were at my direction and personally dictated by me. I have reviewed the chart and agree that the record accurately reflects my personal performance of the history, physical exam, medical decision making, and the department course for this patient. I have also personally directed, reviewed, and agree with the discharge instructions and disposition.
== END 2017-07-01 13:13 | disposition home or self-care (01) ==
LOC: C.ER 10:54
DX: M54.5 Low back pain (principal)
CPT/HCPCS: 81001; 87086; 96372; 99284; J1100; J1885

== ENCOUNTER 2018-03-01 06:23 | Emergency (ER) | payer OTHER ==
[2018-03-01 06:24] VITALS: BMI 29.7
[2018-03-01 09:02] VITALS: BP 131/73; PULSE 64; RESP 20; TEMP 98.1; O2SAT 97
--- NOTE | 2018-03-01 09:06 | C.PDOC ---
History Of Present Illness 72 years old female presents to ED for evaluation of nasal congestion, sore throat, and chest soreness with cough. Denies shortness of breath, chest pain, nausea, vomiting, diarrhea, fever, or any other complaints. Time Seen by Provider: 03/01/18 07:07 Chief Complaint (Nursing): Cough, Cold, Congestion History Per: Patient History/Exam Limitations: no limitations Onset/Duration Of Symptoms: Hrs Current Symptoms Are (Timing): Still Present Location Of Pain: Throat Sick Contacts (Context): None Associated Symptoms: Sore Throat, Cough, Nasal Congestion. denies: Fever, Nausea, Vomiting, Diarrhea Ear Symptoms: Bilateral: None Recent travel outside of the [place]: No Past Medical History Reviewed: Historical Data, Nursing Documentation, Vital Signs Vital Signs: Last Vital Signs Temp 98.1 F 03/01/18 09:01 Pulse 64 03/01/18 09:01 Resp 20 03/01/18 09:01 BP 131/73 03/01/18 09:01 Pulse Ox 97 03/01/18 09:01 - Medical History PMH: Diabetes, HTN, Hypercholesterolemia, Osteoporosis Denies: Chronic Kidney Disease Surgical History: No Surg Hx Family History: States: Unknown Family Hx - Social History Hx Tobacco Use: No Hx Alcohol Use: No Hx Substance Use: No - Immunization History Hx Tetanus Toxoid Vaccination: No Hx Influenza Vaccination: No Hx Pneumococcal Vaccination: No Review Of Systems Constitutional: Negative for: Fever, Chills ENT: Positive for: Nose Congestion, Throat Pain. Negative for: Ear Pain Respiratory: Positive for: Cough Gastrointestinal: Negative for: Nausea, Vomiting, Abdominal Pain, Diarrhea Skin: Negative for: Rash Neurological: Negative for: Weakness, Numbness Physical Exam - Physical Exam Appears: Non-toxic, No Acute Distress Skin: Normal Color, Warm, Dry, No Rash Head: Atraumatic, Normacephalic Eye(s): bilateral: Normal Inspection, PERRL, EOMI Ear(s): Bilateral: Normal Oral Mucosa: Moist Throat: Erythema (Mild pharyngeal ), Other (Slightly enlarged submandibular (left sided) ) Neck: Normal ROM, Supple Chest: Symmetrical, No Tenderness Cardiovascular: Rhythm Regular, No Murmur Respiratory: Normal Breath Sounds, No Rales, No Rhonchi, No Wheezing Gastrointestinal/Abdominal: Bowel Sounds, Soft, No Tenderness Extremity: Normal ROM Extremity: Bilateral: Atraumatic, Normal Color And Temperature, Normal ROM Pulses: Left Radial: Normal, Right Radial: Normal Neurological/Psych: Oriented x3, Normal Speech Gait: Steady ED Course And Treatment O2 Sat by Pulse Oximetry: 97 (RA) Pulse Ox Interpretation: Normal - Radiology CXR: Interpreted by Me, Viewed By Me CXR Interpretation: Yes: No Acute Disease Nexus Criteria: Negative - Other Rad CXR X-Ray: Viewed By Me, Read By Radiologist Interpretation: Date of service: 03/01/2018. HISTORY: cough/congestion. COMPARISON: 07/13/2016. TECHNIQUE: Chest PA and lateral. FINDINGS: LUNGS: Hyperinflation, manifestations of COPD. No active pulmonary disease. PLEURA: No significant pleural effusion identified. No pneumothorax apparent. CARDIOVASCULAR: Atherosclerotic calcifications identified primarily in the aortic arch. Normal cardiac size. No pulmonary vascular congestion. OSSEOUS STRUCTURES: No significant abnormalities. VISUALIZED UPPER ABDOMEN: Normal. OTHER FINDINGS: None. IMPRESSION: No active disease. No significant interval change compared to the prior examination(s). Progress Note: Administered Zithromax. Disposition - Disposition Disposition: HOME/ ROUTINE Disposition Time: 09:36 Condition: STABLE Additional Instructions: Follow up with PMD within 1-2 days. Return to ED if feel worse. 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 - Scribe Statement The provider has reviewed the documentation as recorded by the Scribe Armand Mann All medical record entries made by the Brendanibe were at my direction and personally dictated by me. I have reviewed the chart and agree that the record accurately reflects my personal performance of the history, physical exam, medical decision making, and the department course for this patient. I have also personally directed, reviewed, and agree with the discharge instructions and disposition.
--- NOTE | 2018-03-01 11:13 | RAD ---
Date of service: 03/01/2018 HISTORY: cough/congestion COMPARISON: 07/13/2016 TECHNIQUE: Chest PA and lateral FINDINGS: LUNGS: Hyperinflation, manifestations of COPD. No active pulmonary disease. PLEURA: No significant pleural effusion identified. No pneumothorax apparent. CARDIOVASCULAR: Atherosclerotic calcifications identified primarily in the aortic arch. Normal cardiac size. No pulmonary vascular congestion. OSSEOUS STRUCTURES: No significant abnormalities. VISUALIZED UPPER ABDOMEN: Normal. OTHER FINDINGS: None. IMPRESSION: No active disease. No significant interval change compared to the prior examination(s).
== END 2018-03-01 09:43 | disposition home or self-care (01) ==
LOC: C.ER 06:23
DX: J40 Bronchitis, not specified as acute or chronic (principal); E11.9 Type 2 diabetes mellitus without complications; E78.00 Pure hypercholesterolemia, unspecified; I10 Essential (primary) hypertension; M81.0 Age-related osteoporosis without current pathological fracture